=== PATIENT | female | born 1960 ===

== ENCOUNTER 2017-04-04 06:56 | Emergency (ER) | payer MEDICAID ==
[2017-04-04 07:25] VITALS: BMI 22.1
[2017-04-04 07:33] VITALS: RESP 17
--- NOTE | 2017-04-04 08:30 | ED PDOC ---
HPI: General Adult Time Seen by Provider: 04/04/17 07:42 Chief Complaint (Nursing): Flu-like Symptoms Chief Complaint (Provider): Fever, Body Aches, Sore Throat, Cough History Per: Patient History/Exam Limitations: no limitations Onset/Duration Of Symptoms: Days (x7) Have you had recent travel within the past 21 days to any of the following countries: [place], [place], [place] or [place]?: No Current Symptoms Are (Timing): Still Present Additional Complaint(s): Rosa Elena Moyer, a 56 year old female, presents to the ED complaining of fever, body aches, sore throat and non productive cough x1 week. The patient reports that her symptoms are associated with epigastric abdominal pain. Denies vomiting an diarrhea. PMD: [facility] Past Medical History Vital Signs: Last Vital Signs Temp 100 F H 04/04/17 07:30 Pulse 89 04/04/17 07:30 Resp 17 04/04/17 07:30 BP 142/79 04/04/17 07:23 Pulse Ox 97 04/04/17 08:36 - Medical History PMH: Anxiety, Arthritis (clinical lupus. 2007), Kidney Stones Denies: HIV - Surgical History Other surgeries: multiple abdominal surgeries for perforated bowel - Family History Family History: States: Unknown Family Hx - Social History Current smoker - smoking cessation education provided: No Ex-Smoker (has not smoked in the last 12 months): No Alcohol: None Drugs: Denies - Home Medications Home Medications: Ambulatory Orders Medication Instructions Recorded Prednisone 50 mg PO DAILY #4 tablet 07/09/16 Promethazine/Codeine 5 ml PO DAILY PRN #100 ml 07/09/16 [Phenergan/Codeine Oral Syrup] Amoxicillin [Amoxil 500 mg Cap] 500 mg PO TID #30 cap 04/04/17 Famotidine [Pepcid] 20 mg PO Q12 #20 tab 04/04/17 - Allergies Allergies/Adverse Reactions: Allergies Allergy/AdvReac Type Severity Reaction Status Date / Time almond Allergy SHORTNESS Verified 07/09/16 17:22 OF BREATH Review of Systems ROS Statement: Except As Marked, All Systems Reviewed And Found Negative Constitutional: Positive for: Fever, Other (body aches) ENT: Positive for: Throat Pain Respiratory: Positive for: Cough (non-productive) Gastrointestinal: Negative for: Vomiting, Diarrhea Physical Exam - Reviewed Nursing Documentation Reviewed: Yes Vital Signs Reviewed: Yes - Physical Exam Appears: Positive for: Non-toxic, No Acute Distress Head Exam: Positive for: ATRAUMATIC, NORMAL INSPECTION, NORMOCEPHALIC Skin: Positive for: Normal Color, Warm, Dry. Negative for: Rash Eye Exam: Positive for: Normal appearance, EOMI, PERRL ENT: Positive for: Normal ENT Inspection, Other (throat mild erythema no exudates; MISSAEL positive) Neck: Positive for: Normal, Painless ROM, Supple Cardiovascular/Chest: Positive for: Regular Rate, Rhythm, Chest Non Tender. Negative for: Tachycardia Respiratory: Positive for: Normal Breath Sounds. Negative for: Rales, Rhonchi, Wheezing, Respiratory Distress Gastrointestinal/Abdominal: Positive for: Bowel Sounds, Soft, Tenderness (Mid epigastric tenderness surgical scars on lower abdomen noted). Negative for: Normal Exam, Distended Back: Positive for: Normal Inspection. Negative for: L CVA Tenderness, R CVA Tenderness Neurologic/Psych: Positive for: Alert, Oriented - Laboratory Results Result Diagrams: 04/04/17 08:00 04/04/17 08:00 - ECG O2 Sat by Pulse Oximetry: 97 (RA) Pulse Ox Interpretation: Normal Medical Decision Making Medical Decision Makin Initial Impression 56 y/o female presenting with fever, cough, body aches and non productive cough Initial Plan; * CMP * CBC * Influenza A B * Rapid Strep Group * Reevaluation Scribe Attestation Documented by Frances Salguero acting as a scribe for Jonathan Cortez MD. Provider Attestation All medical record entries made by the Scribe were at my direction and personally dictated by me. I have reviewed the chart and agree that the record accurately reflects my personal performance of the history, physical exam, medical decision making, and the department course for this patient. I have also personally directed, reviewed, and agree with the discharge instructions and disposition. Disposition - Clinical Impression Clinical Impression: Pharyngitis, URI (upper respiratory infection) - Patient ED Disposition Is Patient to be Admitted: No Counseled Patient/Family Regarding: Studies Performed, Diagnosis, Need For Followup, Rx Given - Disposition Referrals: [facility] [Outside] Disposition: Routine/Home Disposition Time: 08:53 Condition: FAIR Prescriptions: Amoxicillin [Amoxil 500 mg Cap] 500 mg PO TID #30 cap Famotidine [Pepcid] 20 mg PO Q12 #20 tab Instructions: Pharyngitis (ED), Upper Respiratory Infection (ED) Forms: [employer] ([place])
[2017-04-04 08:31] LABS: BASO % 0.5 % (0.0-2.0); EOS # 0.1 K/uL (0.0-0.7); EOS % 2.1 % (0.0-4.0); HEMATOCRIT 39.3 % (34.0-47.0); LYMPH # 1.1 K/uL (1.0-4.3); LYMPH % 22.2 % (20.0-40.0); MEAN CELL VOLUME 89.5 fl (81.0-99.0); MEAN CORPUSCULAR HEMOGLOBIN 29.5 pg (27.0-31.0); MEAN PLATELET VOLUME 9.2 fl (7.2-11.7); MONO # 0.7 K/uL (0.0-0.8); MONO % 14.7 % (0.0-10.0); NEUT # 2.9 K/uL (1.8-7.0); NEUT % 60.5 % (50.0-75.0); RED CELL DISTRIBUTION WIDTH 12.8 % (11.5-14.5); WHITE BLOOD COUNT 4.8 K/uL (4.8-10.8)
[2017-04-04 08:44] LABS: ALB/GLOB RATIO 1.2 (1.0-2.1); ALKALINE PHOSPHATASE 76 U/L (38-126); ALT/SGPT 53 U/L (9-52); AST/SGOT 39 U/L (14-36); BILIRUBIN,TOTAL 0.5 mg/dl (0.2-1.3); BLOOD UREA NITROGEN 17 mg/dl (7-17); CALCIUM 8.9 mg/dL (8.4-10.2); CARBON DIOXIDE 26 mmol/L (22-30); CHLORIDE 106 mmol/L (98-107); GFR AFRICAN-AMERICAN > 60; GLUCOSE,RANDOM 95 mg/dL (65-105); POTASSIUM 4.9 MMOL/L (3.6-5.0); SODIUM 143 mmol/l (132-148); TOTAL PROTEIN 7.7 G/DL (6.3-8.2)
[2017-04-04 09:05] VITALS: BP 130/78; PULSE 78; TEMP 97; O2SAT 98
== END 2017-04-04 09:05 | disposition home or self-care (01) ==
LOC: H.ER 06:56
DX: J06.9 Acute upper respiratory infection, unspecified (principal); J02.9 Acute pharyngitis, unspecified; F41.9 Anxiety disorder, unspecified; M32.9 Systemic lupus erythematosus, unspecified; Z87.442 Personal history of urinary calculi

== ENCOUNTER 2017-06-19 14:06 | Observation (INO) | payer MEDICAID ==
[2017-06-19 14:07] VITALS: BMI 22.1
[2017-06-19] MEDS ORDERED: Sodium Chloride 0.9% 1,000 ML IV STA (14:59)
--- NOTE | 2017-06-19 15:04 | ED PDOC ---
HPI: General Adult Time Seen by Provider: 06/19/17 14:38 Chief Complaint (Nursing): Back Pain Chief Complaint (Provider): Fever History Per: Patient History/Exam Limitations: no limitations Onset/Duration Of Symptoms: Days (x 3) Current Symptoms Are (Timing): Still Present Additional Complaint(s): Rosa Elena is a 56 y/o female on day 3 of Cipro for a UTI who presents to the ED complaining of continued fever up to 103, right abdominal pain, headache, palpitations, dysuria, nausea and vomiting. Patient denies hematuria. PMD: [facility] Past Medical History Reviewed: Historical Data, Nursing Documentation, Vital Signs Vital Signs: Last Vital Signs Temp 98 F 06/20/17 12:45 Pulse 82 06/20/17 12:45 Resp 18 06/20/17 12:45 BP 120/74 06/20/17 12:45 Pulse Ox 100 06/20/17 12:45 - Medical History PMH: Anxiety, Arthritis (clinical lupus. 2007), Kidney Stones (right sided) Denies: HIV - Family History Family History: States: Unknown Family Hx - Social History Current smoker - smoking cessation education provided: No Alcohol: None - Home Medications Home Medications: Ambulatory Orders Medication Instructions Recorded Acetaminophen [Tylenol 325mg tab] 650 mg PO Q4 PRN tab 06/20/17 Amoxicillin/Clavulanate [Augmentin 1 tab PO Q12 #14 tab 06/20/17 875 MG-125 MG] - Allergies Allergies/Adverse Reactions: Allergies Allergy/AdvReac Type Severity Reaction Status Date / Time almond Allergy SHORTNESS Verified 06/19/17 14:32 OF BREATH Review of Systems ROS Statement: Except As Marked, All Systems Reviewed And Found Negative Constitutional: Positive for: Fever Cardiovascular: Positive for: Palpitations Gastrointestinal: Positive for: Nausea, Vomiting, Abdominal Pain (right sided) Genitourinary Female: Positive for: Dysuria. Negative for: Hematuria Neurological: Positive for: Headache Physical Exam - Reviewed Nursing Documentation Reviewed: Yes Vital Signs Reviewed: Yes - Physical Exam Appears: Positive for: Non-toxic, Uncomfortable Cardiovascular/Chest: Positive for: Tachycardia, Other (regular rhythm) Respiratory: Positive for: Normal Breath Sounds. Negative for: Respiratory Distress Gastrointestinal/Abdominal: Positive for: Soft, Tenderness (right lateral). Negative for: Guarding, Rebound Extremity: Positive for: Normal ROM Neurologic/Psych: Positive for: Alert, Oriented - Laboratory Results Result Diagrams: 06/20/17 05:00 06/20/17 05:53 - ECG O2 Sat by Pulse Oximetry: 98 (RA) Pulse Ox Interpretation: Normal Medical Decision Making Medical Decision Making: Time: 14:59 Initial Impression: UTI, Pyelonephritis, Nephrolithiasis, Sepsis Initial Plan: --CT Abdomen & Pelvis w/o Contrast --VBG --CMP --Urine Dip --CBC --PTT --Prothrombin Time --Morphine --Zofran --Blood Culture --Urine Culture --Flu Swab --Urinalysis Time: 16:10 CT ABDOMEN & PELVIS FINDINGS: LOWER THORAX: Unremarkable. LIVER: Cm superior right hepatic hypodensities is emboli in benign lesions probably incidental tiny liver cysts are noted. No worrisome interval liver masses suggested. Bordering the branching portal vein the vernon hepatis there are hyperdensities resembling calcium and or postsurgical changes. The gallbladder below this is unremarkable appearing these hyperdensities are noted on the prior 2010 study. No additional surgical history provided at this level. No dilated ducts. GALLBLADDER AND BILE DUCTS: Unremarkable. PANCREAS: Unremarkable. No gross lesion or ductal dilatation. SPLEEN: Unremarkable. ADRENALS: Unremarkable. No mass. KIDNEYS AND URETERS: Multifocal right renal cortical scarring/ segmental cortical volume loss with right hydronephrosis and right renal calculi R similar-appearing the largest right renal calculus is approximately 8 to 9 mm within the posterior right lower renal pole collecting system. No hydronephrosis. No solid mass. No interval masses appreciated on this noncontrast study. Concomitant parapelvic cysts are not excluded. Appearance of the kidney does not exclude any concomitant pyelonephritis. Overall appearance is similar to 2010 study. The proximal right extra renal pelvis is also slightly prominent as it was before. No obstructing calculus here is noted. There is slight segmental dilatation of the mid and upper right ureter -not consistently or suggestive of a pulmonary station. Note distal 1/3 obstructing calculus noted. . Tiny nonobstructing left renal calculi estimated to be less than 3 mm in size are noted the presence on the prior study it is difficult to confirm given the prior postcontrast enhanced study VASCULATURE: Unremarkable. No aortic aneurysm. BOWEL: Stool retention. No obstruction. No gross mural thickening. APPENDIX: Not visualized. No gross pericecal inflammatory changes PERITONEUM: Unremarkable. No free fluid. No free air. LYMPH NODES: Unremarkable. No enlarged lymph nodes. BLADDER: No bladder calculi. REPRODUCTIVE: History of hysterectomy. There multiple coarse benign-appearing calcifications present these project over what would be expected to be the postmenopausal appearing uterus. Clinical confirmation of prior hysterectomy status advise. Phleboliths also noted. An a few scattered mesenteric lymph nodes present. Is also hyperdensity surrounding some of the anterior left rectosigmoid colonic loops with stool contents here clinical correlation regarding any prior: Surgical intervention is advised. . BONES: No acute fracture. OTHER FINDINGS: None. IMPRESSION: Right hydronephrosis with multifocal right cortical scarring. Bilateral nephro lithiasis - the largest calculus is within the posterior right lower renal pole collecting system measuring 8 9 mm ; this is similar to the 2010 study. The right hydronephrosis is also similar in extent as is the right multifocal renal cortical scarring. A concomitant element pyelonephritis on the right is not excluded. . Scribe Attestation: Documented by Tone Muse, acting as a scribe for Dr. Claudia Martin MD. Provider Scribe Attestation: All medical record entries made by the Scribe were at my direction and personally dictated by me. I have reviewed the chart and agree that the record accurately reflects my personal performance of the history, physical exam, medical decision making, and the department course for this patient. I have also personally directed, reviewed, and agree with the discharge instructions and disposition. Disposition - Clinical Impression Clinical Impression: UTI (urinary tract infection), Sepsis, Failure of outpatient treatment - Disposition Disposition Time: 16:27 Condition: STABLE - Pt Status Changed To: Hospital Disposition Of: Inpatient - Admit Certification Admit to Inpatient:: After my assessment, the patient will require hospitalization for at least two midnights. This is because of the severity of symptoms shown, intensity of services needed, and/or the medical risk in this patient being treated as an outpatient. - POA Present On Arrival: None
[2017-06-19 15:35] LABS: SQUAMOUS EPITHIAL < 1 /hpf (0-5); URINE BACTERIA RARE (<OCC); URINE BILIRUBIN NEGATIVE (NEGATIVE); URINE BLOOD SMALL (NEGATIVE); URINE CLARITY SLIGHTY-CLOUDY (Clear); URINE COLOR YELLOW (YELLOW); URINE GLUCOSE (UA) NEG (Normal); URINE LEUKOCYTE ESTERASE LARGE Leu/uL (Negative); URINE NITRATE NEGATIVE (NEGATIVE); URINE PROTEIN 30 mg/dL (NEGATIVE); URINE UROBILINOGEN 0.2-1.0 mg/dL (0.2-1.0)
[2017-06-19 15:38] LABS: BASO % 0.2 % (0.0-2.0); HEMOGLOBIN 12.4 g/dL (12.0-16.0); LYMPH # 0.5 K/uL (1.0-4.3); LYMPH % 4.4 % (20.0-40.0); MEAN CELL VOLUME 89.1 fl (81.0-99.0); MEAN CORPUSCULAR HEMOGLOBIN 29.5 pg (27.0-31.0); MEAN CORPUSCULAR HGB CONC 33.1 g/dL (33.0-37.0); MEAN PLATELET VOLUME 8.4 fl (7.2-11.7); MONO # 0.8 K/uL (0.0-0.8); MONO % 7.4 % (0.0-10.0); NEUT # 9.7 K/uL (1.8-7.0); NRBC % 0.1 % (0.0-0.0); PLATELET COUNT 212 K/uL (130-400); RED CELL DISTRIBUTION WIDTH 12.8 % (11.5-14.5); WHITE BLOOD COUNT 11.1 K/uL (4.8-10.8)
[2017-06-19 15:38] LABS: ALB/GLOB RATIO 1.1 (1.0-2.1); ALBUMIN 3.9 g/dL (3.5-5.0); ALT/SGPT 38 U/L (9-52); AST/SGOT 36 U/L (14-36); BLOOD UREA NITROGEN 21 mg/dl (7-17); CALCIUM 8.6 mg/dL (8.4-10.2); GFR AFRICAN-AMERICAN > 60; GFR NON-AFRICAN AMERICAN > 60
[2017-06-19 15:43] LABS: INR 1.2 (0.9-1.2); PARTIAL THROMBOPLASTIN TIME 29.7 Seconds (25.6-37.1); PROTHROMBIN TIME 13.3 Seconds (9.8-13.1)
[2017-06-19 15:52] LABS: VENOUS BLOOD GAS PCO2 38 mmHg (40-60); VENOUS BLOOD GAS PO2 58 mm/Hg (30-55); VENOUS BLOOD PH 7.43 (7.32-7.43)
--- NOTE | 2017-06-19 16:12 | CT ---
PROCEDURE: CT Abdomen and Pelvis without intravenous contrast HISTORY: R flank pain, fever COMPARISON: 02/27/2010 TECHNIQUE: Without contrast.. Contrast Dose: None Radiation dose: Total exam DLP = 450 mGy-cm. This CT exam was performed using one or more of the following dose reduction techniques: Automated exposure control, adjustment of the mA and/or kV according to patient size, and/or use of iterative reconstruction technique. FINDINGS: LOWER THORAX: Unremarkable. LIVER: Cm superior right hepatic hypodensities is emboli in benign lesions probably incidental tiny liver cysts are noted. No worrisome interval liver masses suggested. Bordering the branching portal vein the vernon hepatis there are hyperdensities resembling calcium and or postsurgical changes. The gallbladder below this is unremarkable appearing these hyperdensities are noted on the prior 2010 study. No additional surgical history provided at this level. No dilated ducts. GALLBLADDER AND BILE DUCTS: Unremarkable. PANCREAS: Unremarkable. No gross lesion or ductal dilatation. SPLEEN: Unremarkable. ADRENALS: Unremarkable. No mass. KIDNEYS AND URETERS: Multifocal right renal cortical scarring/ segmental cortical volume loss with right hydronephrosis and right renal calculi R similar-appearing the largest right renal calculus is approximately 8 to 9 mm within the posterior right lower renal pole collecting system. No hydronephrosis. No solid mass. No interval masses appreciated on this noncontrast study. Concomitant parapelvic cysts are not excluded. Appearance of the kidney does not exclude any concomitant pyelonephritis. Overall appearance is similar to 2010 study. The proximal right extra renal pelvis is also slightly prominent as it was before. No obstructing calculus here is noted. There is slight segmental dilatation of the mid and upper right ureter -not consistently or suggestive of a pulmonary station. Note distal 1/3 obstructing calculus noted. . Tiny nonobstructing left renal calculi estimated to be less than 3 mm in size are noted the presence on the prior study it is difficult to confirm given the prior postcontrast enhanced study VASCULATURE: Unremarkable. No aortic aneurysm. BOWEL: Stool retention. No obstruction. No gross mural thickening. APPENDIX: Not visualized. No gross pericecal inflammatory changes PERITONEUM: Unremarkable. No free fluid. No free air. LYMPH NODES: Unremarkable. No enlarged lymph nodes. BLADDER: No bladder calculi. REPRODUCTIVE: History of hysterectomy. There multiple coarse benign-appearing calcifications present these project over what would be expected to be the postmenopausal appearing uterus. Clinical confirmation of prior hysterectomy status advise. Phleboliths also noted. An a few scattered mesenteric lymph nodes present. Is also hyperdensity surrounding some of the anterior left rectosigmoid colonic loops with stool contents here clinical correlation regarding any prior: Surgical intervention is advised. . BONES: No acute fracture. OTHER FINDINGS: None. IMPRESSION: Right hydronephrosis with multifocal right cortical scarring. Bilateral nephro lithiasis - the largest calculus is within the posterior right lower renal pole collecting system measuring 8 9 mm ; this is similar to the 2010 study. The right hydronephrosis is also similar in extent as is the right multifocal renal cortical scarring. A concomitant element pyelonephritis on the right is not excluded. .
[2017-06-19] MEDS ORDERED: cefTRIAXone (Rocephin) 1 gm Inj ONE (16:37)
[2017-06-19 17:01] LABS: BANDS 3 % (0-2); LYMPHOCYTE 5 % (20-50); MONOCYTE 8 % (0-10); NEUTROPHIL 84 % (42-75); PLATELET ESTIMATE NORMAL (NORMAL); TOTAL CELLS COUNTED 100
[2017-06-19 17:02] LABS: ANISOCYTOSIS SLIGHT; MICROCYTOSIS SLIGHT
[2017-06-19] MEDS: Sodium Chloride 0.9% 1,000 ML IV SCH (20:54)
[2017-06-20 00:52] VITALS: RESP 18
[2017-06-20] MEDS: Sodium Chloride 0.9% 1,000 ML IV SCH (03:00)
[2017-06-20 06:02] LABS: BASO % 0.5 % (0.0-2.0); EOS # 0.1 K/uL (0.0-0.7); EOS % 0.8 % (0.0-4.0); HEMOGLOBIN 11.1 g/dL (12.0-16.0); LYMPH % 15.6 % (20.0-40.0); MEAN CELL VOLUME 89.2 fl (81.0-99.0); MEAN CORPUSCULAR HEMOGLOBIN 29.7 pg (27.0-31.0); MEAN CORPUSCULAR HGB CONC 33.3 g/dL (33.0-37.0); MEAN PLATELET VOLUME 8.5 fl (7.2-11.7); MONO # 0.8 K/uL (0.0-0.8); MONO % 12.6 % (0.0-10.0); NEUT # 4.7 K/uL (1.8-7.0); NEUT % 70.5 % (50.0-75.0); NRBC % 0.1 % (0.0-0.0); RBC 3.73 Mil/uL (3.80-5.20); RED CELL DISTRIBUTION WIDTH 13.1 % (11.5-14.5); WHITE BLOOD COUNT 6.7 K/uL (4.8-10.8)
[2017-06-20 07:42] LABS: ALB/GLOB RATIO 0.9 (1.0-2.1); ALT/SGPT 27 U/L (9-52); AST/SGOT 30 U/L (14-36); BLOOD UREA NITROGEN 18 mg/dl (7-17); CALCIUM 8.1 mg/dL (8.4-10.2); GFR AFRICAN-AMERICAN > 60; GFR NON-AFRICAN AMERICAN > 60
--- NOTE | 2017-06-20 08:25 | CP.PCM.HP ---
History of Present Illness - History of Present Illness History of Present Illness: pt admitted for pyelonephritis, sepsis and outpt failure of uti. at present. no f/c, n/v/d. only c/o headache. no flank pain at present. ct noted w/ nonobstructing stone-pt has h/o same. bw noted-wbc trendning down Present on Admission - Present on Admission Any Indicators Present on Admission: No Review of Systems - Constitutional Constitutional: Fever - Genitourinary Genitourinary: As Per HPI, Dysuria, Flank Pain - Neurological Neurological: As Per HPI, Headaches Past Patient History - Past Medical History & Family History Past Medical History?: Yes - Past Social History Smoking Status: Never Smoked - CARDIAC Hx Cardiac Disorders: No - PULMONARY Hx Respiratory Disorders: No - NEUROLOGICAL Hx Neurological Disorder: No - HEENT Hx HEENT Problems: No - RENAL Hx Chronic Kidney Disease: Yes Hx Kidney Stones: Yes (right sided) - ENDOCRINE/METABOLIC Hx Endocrine Disorders: No - HEMATOLOGICAL/ONCOLOGICAL Hx Blood Disorders: No Hx AIDS: No Hx Human Immunodeficiency Virus (HIV): No - INTEGUMENTARY Hx Dermatological Problems: No - MUSCULOSKELETAL/RHEUMATOLOGICAL Hx Musculoskeletal Disorders: Yes Hx Arthritis: Yes Hx Falls: No - GASTROINTESTINAL Hx Gastrointestinal Disorders: Yes Hx Bowel Surgery: No Hx Colostomy: No Hx Constipation: Yes Other/Comment: stomach ruptures - GENITOURINARY/GYNECOLOGICAL Hx Genitourinary Disorders: Yes Other/Comment: kidney stones - PSYCHIATRIC Hx Psychophysiologic Disorder: Yes Hx Anxiety: Yes Hx Substance Use: No - SURGICAL HISTORY Hx Surgeries: Yes Hx Section: Yes Hx Hysterectomy: Yes - ANESTHESIA Hx Anesthesia: Yes Hx Anesthesia Reactions: No Hx Malignant Hyperthermia: No Meds Allergies/Adverse Reactions: Allergies Allergy/AdvReac Type Severity Reaction Status Date / Time almond Allergy SHORTNESS Verified 06/19/17 14:32 OF BREATH Physical Exam - Constitutional Appears: Well, Non-toxic, No Acute Distress - Head Exam Head Exam: ATRAUMATIC, NORMAL INSPECTION, NORMOCEPHALIC - Eye Exam Eye Exam: EOMI, Normal appearance, PERRL Pupil Exam: NORMAL ACCOMODATION, PERRL - ENT Exam ENT Exam: Mucous Membranes Moist, Normal Exam - Neck Exam Neck exam: Positive for: Normal Inspection - Respiratory Exam Respiratory Exam: Clear to Auscultation Bilateral, NORMAL BREATHING PATTERN - Cardiovascular Exam Cardiovascular Exam: REGULAR RHYTHM, RRR, +S1, +S2 - GI/Abdominal Exam GI & Abdominal Exam: Normal Bowel Sounds, Soft. absent: Tenderness - Extremities Exam Extremities exam: Positive for: full ROM, normal capillary refill, normal inspection, pedal pulses present - Back Exam Back exam: NORMAL INSPECTION - Neurological Exam Neurological exam: Alert, CN II-XII Intact, Normal Gait, Oriented x3, Reflexes Normal - Psychiatric Exam Psychiatric exam: Normal Affect, Normal Mood - Skin Skin Exam: Dry, Intact, Normal Color, Warm Results - Vital Signs Recent Vital Signs: Last Vital Signs Temp 98.1 F 06/20/17 07:48 Pulse 84 06/20/17 07:48 Resp 18 06/20/17 07:48 BP 120/79 06/20/17 07:48 Pulse Ox 99 06/20/17 07:48 - Labs Result Diagrams: 06/20/17 05:00 06/20/17 05:53 Labs: Laboratory Results - last 24 hr 06/19/17 06/19/17 06/19/17 15:15 15:15 15:15 WBC RBC Hgb Hct MCV MCH MCHC RDW Plt Count MPV Neut % (Auto) Lymph % (Auto) Cass % (Auto) Eos % (Auto) Baso % (Auto) Neut # (Auto) Lymph # (Auto) Cass # (Auto) Eos # (Auto) Baso # (Auto) Neutrophils % (Manual) Band Neutrophils % Lymphocytes % (Manual) Monocytes % (Manual) Platelet Estimate Anisocytosis (manual) Microcytosis (manual) PT 13.3 H INR 1.2 APTT 29.7 pO2 VBG pH VBG pCO2 VBG HCO3 VBG Total CO2 VBG O2 Sat (Calc) VBG Base Excess VBG Potassium Glucose Lactate FiO2 Sodium 137 Potassium 3.9 Chloride 101 Carbon Dioxide 23 Anion Gap 17 BUN 21 H Creatinine 0.8 Est GFR ( Amer) > 60 Est GFR (Non-Af Amer) > 60 Random Glucose 101 Calcium 8.6 Total Bilirubin 0.6 AST 36 ALT 38 Alkaline Phosphatase 79 Total Protein 7.5 Albumin 3.9 Globulin 3.6 Albumin/Globulin Ratio 1.1 Venous Blood Potassium Urine Color Urine Clarity Urine pH Ur Specific [place] Urine Protein Urine Glucose (UA) Urine Ketones Urine Blood Urine Nitrate Urine Bilirubin Urine Urobilinogen Ur Leukocyte Esterase Urine RBC (Auto) Urine Microscopic WBC Ur Squamous Epith Cells Urine Bacteria Influenza Typ A,B (EIA) Negative for flu a/b 06/19/17 06/19/17 06/19/17 15:15 15:45 16:15 WBC 11.1 H D RBC 4.20 Hgb 12.4 Hct 37.4 MCV 89.1 MCH 29.5 MCHC 33.1 RDW 12.8 Plt Count 212 MPV 8.4 Neut % (Auto) 88.0 H Lymph % (Auto) 4.4 L Cass % (Auto) 7.4 Eos % (Auto) 0.0 Baso % (Auto) 0.2 Neut # (Auto) 9.7 H Lymph # (Auto) 0.5 L Cass # (Auto) 0.8 Eos # (Auto) 0.0 Baso # (Auto) 0.0 Neutrophils % (Manual) 84 H Band Neutrophils % 3 H Lymphocytes % (Manual) 5 L Monocytes % (Manual) 8 Platelet Estimate Normal Anisocytosis (manual) Slight Microcytosis (manual) Slight PT INR APTT pO2 58 H VBG pH 7.43 VBG pCO2 38 L VBG HCO3 25.5 VBG Total CO2 26.4 VBG O2 Sat (Calc) 94.8 H VBG Base Excess 1.0 VBG Potassium 4.0 Glucose 105 Lactate 0.6 L FiO2 21.0 Sodium 133.0 Potassium Chloride 102.0 Carbon Dioxide Anion Gap BUN Creatinine Est GFR ( Amer) Est GFR (Non-Af Amer) Random Glucose Calcium Total Bilirubin AST ALT Alkaline Phosphatase Total Protein Albumin Globulin Albumin/Globulin Ratio Venous Blood Potassium 4.0 Urine Color Yellow Urine Clarity Slighty-cloudy Urine pH 7.0 Ur Specific [place] 1.013 Urine Protein 30 Urine Glucose (UA) Neg Urine Ketones 20 Urine Blood Small Urine Nitrate Negative Urine Bilirubin Negative Urine Urobilinogen 0.2-1.0 Ur Leukocyte Esterase Large Urine RBC (Auto) 7 H Urine Microscopic WBC 19 H Ur Squamous Epith Cells < 1 Urine Bacteria Rare Influenza Typ A,B (EIA) 06/20/17 06/20/17 05:00 05:53 WBC 6.7 RBC 3.73 L Hgb 11.1 L Hct 33.3 L MCV 89.2 MCH 29.7 MCHC 33.3 RDW 13.1 Plt Count 172 MPV 8.5 Neut % (Auto) 70.5 Lymph % (Auto) 15.6 L Cass % (Auto) 12.6 H Eos % (Auto) 0.8 Baso % (Auto) 0.5 Neut # (Auto) 4.7 Lymph # (Auto) 1.0 Cass # (Auto) 0.8 Eos # (Auto) 0.1 Baso # (Auto) 0.0 Neutrophils % (Manual) Band Neutrophils % Lymphocytes % (Manual) Monocytes % (Manual) Platelet Estimate Anisocytosis (manual) Microcytosis (manual) PT INR APTT pO2 VBG pH VBG pCO2 VBG HCO3 VBG Total CO2 VBG O2 Sat (Calc) VBG Base Excess VBG Potassium Glucose Lactate FiO2 Sodium 142 Potassium 3.9 Chloride 110 H Carbon Dioxide 26 Anion Gap 10 BUN 18 H Creatinine 0.7 Est GFR ( Amer) > 60 Est GFR (Non-Af Amer) > 60 Random Glucose 86 Calcium 8.1 L Total Bilirubin 0.3 AST 30 ALT 27 Alkaline Phosphatase 57 Total Protein 6.1 L Albumin 3.0 L D Globulin 3.2 Albumin/Globulin Ratio 0.9 L Venous Blood Potassium Urine Color Urine Clarity Urine pH Ur Specific [place] Urine Protein Urine Glucose (UA) Urine Ketones Urine Blood Urine Nitrate Urine Bilirubin Urine Urobilinogen Ur Leukocyte Esterase Urine RBC (Auto) Urine Microscopic WBC Ur Squamous Epith Cells Urine Bacteria Influenza Typ A,B (EIA) Assessment & Plan (1) Pyelonephritis Assessment and Plan: f/u c/s rocephin ivf pain and fever control no obvious s/s sepsis. will f/u c/s pt requesting to be dc home. if dc today will do uro outpt, if stays will do inpt consult Status: Acute (2) DVT prophylaxis Assessment and Plan: scd adn ae hose ambulation Status: Acute Decision To Admit - Pt Status Changed To: Hospital Disposition Of: Inpatient - Admit Certification Admit to Inpatient:: After my assessment, the patient will require hospitalization for at least two midnights. This is because of the severity of symptoms shown, intensity of services needed, and/or the medical risk in this patient being treated as an outpatient. - . Bed Request Type: Telemetry Admitting Physician: Crispin De Leon
--- NOTE | 2017-06-20 11:25 | CARD ---
APPROVED REPORT EKG Measurement Heart [id number] <Conclusion> Normal sinus rhythm Normal ECG
[2017-06-20 12:45] VITALS: BP 120/74; PULSE 82; TEMP 98
--- NOTE | 2017-06-20 14:22 | CP.PCM.DIS ---
Provider - Provider Date of Admission: 06/19/17 16:27 Attending physician: Crispin De Leon MD Time Spent in preparation of Discharge (in minutes): 15 Diagnosis - Discharge Diagnosis (1) Pyelonephritis Status: Acute (2) DVT prophylaxis Status: Acute Hospital Course - Lab Results Lab Results: Most Recent Lab Values WBC 6.7 K/uL (4.8-10.8) 06/20/17 05:00 RBC 3.73 Mil/uL (3.80-5.20) L 06/20/17 05:00 Hgb 11.1 g/dL (12.0-16.0) L 06/20/17 05:00 Hct 33.3 % (34.0-47.0) L 06/20/17 05:00 MCV 89.2 fl (81.0-99.0) 06/20/17 05:00 MCH 29.7 pg (27.0-31.0) 06/20/17 05:00 MCHC 33.3 g/dL (33.0-37.0) 06/20/17 05:00 RDW 13.1 % (11.5-14.5) 06/20/17 05:00 Plt Count 172 K/uL (130-400) 06/20/17 05:00 MPV 8.5 fl (7.2-11.7) 06/20/17 05:00 Neut % (Auto) 70.5 % (50.0-75.0) 06/20/17 05:00 Lymph % (Auto) 15.6 % (20.0-40.0) L 06/20/17 05:00 [place] % (Auto) 12.6 % (0.0-10.0) H 06/20/17 05:00 Eos % (Auto) 0.8 % (0.0-4.0) 06/20/17 05:00 Baso % (Auto) 0.5 % (0.0-2.0) 06/20/17 05:00 Neut # (Auto) 4.7 K/uL (1.8-7.0) 06/20/17 05:00 Lymph # (Auto) 1.0 K/uL (1.0-4.3) 06/20/17 05:00 [place] # (Auto) 0.8 K/uL (0.0-0.8) 06/20/17 05:00 Eos # (Auto) 0.1 K/uL (0.0-0.7) 06/20/17 05:00 Baso # (Auto) 0.0 K/uL (0.0-0.2) 06/20/17 05:00 Neutrophils % (Manual) 84 % (42-75) H 06/19/17 16:15 Band Neutrophils % 3 % (0-2) H 06/19/17 16:15 Lymphocytes % (Manual) 5 % (20-50) L 06/19/17 16:15 Monocytes % (Manual) 8 % (0-10) 06/19/17 16:15 Platelet Estimate Normal (NORMAL) 06/19/17 16:15 Anisocytosis (manual) Slight 06/19/17 16:15 Microcytosis (manual) Slight 06/19/17 16:15 PT 13.3 Seconds (9.8-13.1) H 06/19/17 15:15 INR 1.2 (0.9-1.2) 06/19/17 15:15 APTT 29.7 Seconds (25.6-37.1) 06/19/17 15:15 pO2 58 mm/Hg (30-55) H 06/19/17 15:45 VBG pH 7.43 (7.32-7.43) 06/19/17 15:45 VBG pCO2 38 mmHg (40-60) L 06/19/17 15:45 VBG HCO3 25.5 mmol/L 06/19/17 15:45 VBG Total CO2 26.4 mmol/L (22-28) 06/19/17 15:45 VBG O2 Sat (Calc) 94.8 % (40-65) H 06/19/17 15:45 VBG Base Excess 1.0 mmol/L (0.0-2.0) 06/19/17 15:45 VBG Potassium 4.0 mmol/L (3.6-5.2) 06/19/17 15:45 Sodium 133.0 mmol/L (132-148) 06/19/17 15:45 Chloride 102.0 mmol/L (98-107) 06/19/17 15:45 Glucose 105 mg/dL (65-105) 06/19/17 15:45 Lactate 0.6 mmol/L (0.7-2.1) L 06/19/17 15:45 FiO2 21.0 % 06/19/17 15:45 Sodium 142 mmol/l (132-148) 06/20/17 05:53 Potassium 3.9 MMOL/L (3.6-5.0) 06/20/17 05:53 Chloride 110 mmol/L (98-107) H 06/20/17 05:53 Carbon Dioxide 26 mmol/L (22-30) 06/20/17 05:53 Anion Gap 10 (10-20) 06/20/17 05:53 BUN 18 mg/dl (7-17) H 06/20/17 05:53 Creatinine 0.7 mg/dl (0.7-1.2) 06/20/17 05:53 Est GFR ( Amer) > 60 06/20/17 05:53 Est GFR (Non-Af Amer) > 60 06/20/17 05:53 Random Glucose 86 mg/dL (65-105) 06/20/17 05:53 Calcium 8.1 mg/dL (8.4-10.2) L 06/20/17 05:53 Total Bilirubin 0.3 mg/dl (0.2-1.3) 06/20/17 05:53 AST 30 U/L (14-36) 06/20/17 05:53 ALT 27 U/L (9-52) 06/20/17 05:53 Alkaline Phosphatase 57 U/L (38-126) 06/20/17 05:53 Total Protein 6.1 G/DL (6.3-8.2) L 06/20/17 05:53 Albumin 3.0 g/dL (3.5-5.0) L D 06/20/17 05:53 Globulin 3.2 gm/dL (2.2-3.9) 06/20/17 05:53 Albumin/Globulin Ratio 0.9 (1.0-2.1) L 06/20/17 05:53 Venous Blood Potassium 4.0 mmol/L (3.6-5.2) 06/19/17 15:45 Urine Color Yellow (YELLOW) 06/19/17 15:15 Urine Clarity Slighty-cloudy (Clear) 06/19/17 15:15 Urine pH 7.0 (5.0-8.0) 06/19/17 15:15 Ur Specific [place] 1.013 (1.003-1.030) 06/19/17 15:15 Urine Protein 30 mg/dL (NEGATIVE) 06/19/17 15:15 Urine Glucose (UA) Neg mg/dL (Normal) 06/19/17 15:15 Urine Ketones 20 mg/dL (NEGATIVE) 06/19/17 15:15 Urine Blood Small (NEGATIVE) 06/19/17 15:15 Urine Nitrate Negative (NEGATIVE) 06/19/17 15:15 Urine Bilirubin Negative (NEGATIVE) 06/19/17 15:15 Urine Urobilinogen 0.2-1.0 mg/dL (0.2-1.0) 06/19/17 15:15 Ur Leukocyte Esterase Large [place]/uL (Negative) 06/19/17 15:15 Urine RBC (Auto) 7 /hpf (0-3) H 06/19/17 15:15 Urine Microscopic WBC 19 /hpf (0-5) H 06/19/17 15:15 Ur Squamous Epith Cells < 1 /hpf (0-5) 06/19/17 15:15 Urine Bacteria Rare (<OCC) 06/19/17 15:15 Influenza Typ A,B (EIA) Negative for flu a/b (NEGATIVE) 06/19/17 15:15 - Hospital Course Hospital Course: rocephin ivf pain and fever control bw Discharge Exam - Head Exam Head Exam: ATRAUMATIC, NORMAL INSPECTION, NORMOCEPHALIC Discharge Plan - Discharge Medications Prescriptions: Amoxicillin/Clavulanate [Augmentin 875 MG-125 MG] 1 tab PO Q12 #14 tab - Follow Up Plan Condition: FAIR Disposition: HOME/ ROUTINE Instructions: Acute Pyelonephritis (DC) Additional Instructions: follow up with pmd in 7-10 days final dx-pyelonephritis f/u rmg 1 days, rted prn, meds per med rec stay hydration, will f/u c/s outpt Referrals: Crispin De Leon MD [Family Provider] - Nils Sylvester Jr., MD [Staff Provider] -
[2017-06-21 11:24] VITALS: O2SAT 98
== END 2017-06-20 14:00 | disposition home or self-care (01) ==
LOC: H.ER 14:06 → INTOOBSV 16:27 → H.ERHOLD 16:27 → H.TEL 18:20
PROVIDERS: ADMIT Family Medicine; ATTEND Family Medicine
DX: N10 Acute pyelonephritis (principal); Z87.442 Personal history of urinary calculi
CPT/HCPCS: 36415; 74176; 80053; 81003; 82803; 85025; 85610; 85730; 87040; 87086; 87804; 93005; 99285; G0378; J0696; J2270; J2405; J7040

== ENCOUNTER 2017-10-22 07:57 | Day surgery (SDC) | payer MEDICAID ==
[2017-10-22 08:30] VITALS: BMI 21.9
[2017-10-22] MEDS ORDERED: Lactated Ringer's 500 ML IV ONE ×2 (08:32→11:18)
[2017-10-22 08:41] VITALS: O2SAT 100
[2017-10-22] MEDS ORDERED: Propofol 10 mg/ml Inj (20 ML) ONE ×2 (10:52→11:17)
[2017-10-22 11:53] VITALS: TEMP 97.2
[2017-10-22 11:58] VITALS: BP 120/79
[2017-10-22 12:00] VITALS: PULSE 71; RESP 12
== END 2017-10-22 13:00 | disposition home or self-care (01) ==
LOC: H.ENDO 07:57
PROVIDERS: ATTEND Internal Medicine Gastroenterology
DX: Z12.11 Encounter for screening for malignant neoplasm of colon (principal); K64.8 Other hemorrhoids; K44.9 Diaphragmatic hernia without obstruction or gangrene; K29.70 Gastritis, unspecified, without bleeding; R10.13 Epigastric pain
CPT/HCPCS: 43239; 45378; 88305; J2001; J2704; J7120

== ENCOUNTER 2018-09-18 21:36 | Emergency (ER) | payer MEDICAID ==
[2018-09-18 21:36] VITALS: BMI 21.9
[2018-09-18 22:11] VITALS: RESP 18; TEMP 97.9; O2SAT 99
[2018-09-18 23:41] LABS: BASO # 0.1 K/uL (0.0-0.2); BASO % 1.3 % (0.0-2.0); EOS # 0.2 K/uL (0.0-0.7); EOS % 3.5 % (0.0-4.0); HEMOGLOBIN 12.9 g/dL (12.0-16.0); LYMPH # 2.1 K/uL (1.0-4.3); LYMPH % 43.5 % (20.0-40.0); MEAN CELL VOLUME 89.8 fl (81.0-99.0); MEAN CORPUSCULAR HGB CONC 33.4 g/dL (33.0-37.0); MEAN PLATELET VOLUME 9.2 fl (7.2-11.7); MONO # 0.3 K/uL (0.0-0.8); MONO % 7.1 % (0.0-10.0); NEUT # 2.1 K/uL (1.8-7.0); NEUT % 44.6 % (50.0-75.0); NRBC % 0.1 % (0.0-0.0); RBC 4.31 Mil/uL (3.80-5.20); RED CELL DISTRIBUTION WIDTH 12.9 % (11.5-14.5); WHITE BLOOD COUNT 4.8 K/uL (4.8-10.8)
[2018-09-18 23:44] LABS: PROTHROMBIN TIME 11.4 Seconds (9.8-13.1)
[2018-09-18 23:46] LABS: PARTIAL THROMBOPLASTIN TIME 34.4 Seconds (25.6-37.1)
[2018-09-18 23:47] LABS: ALB/GLOB RATIO 1.4 (1.0-2.1); ALBUMIN 4.4 g/dL (3.5-5.0); ALT/SGPT 29 U/L (9-52); AST/SGOT 29 U/L (14-36); BLOOD UREA NITROGEN 25 mg/dl (7-17); CALCIUM 9.4 mg/dL (8.4-10.2); GFR NON-AFRICAN AMERICAN > 60
--- NOTE | 2018-09-19 00:38 | ED PDOC ---
HPI: Hypertension/Hypotension Time Seen by Provider: 09/18/18 22:51 Chief Complaint (Nursing): Palpitations Chief Complaint (Provider): Palpitations History Per: Patient History/Exam Limitations: no limitations Onset/Duration Of Symptoms: Other (Today) Associated Symptoms: Dizziness. denies: Chest Pain Additional Complaint(s): 58 years old female with a history of "long standing palpitations and blood clots from thickened blood" presents to ER for evaluation of "fibrillations" of her heart onset today. Patient reports symptoms are better when sitting up and worse with laying down. She states she gets dizzy because of it and reports she is usually able to make palpitations go away by changing position but today she has not been able to. Patient reports she feels like she cannot take a deep breath in and feels she has to make herself yawn to get air in her lungs. She denies chest pain, cough, fevers and leg swelling. PMD: None provided Past Medical History Reviewed: Historical Data, Nursing Documentation, Vital Signs Vital Signs: Last Vital Signs Temp 97.9 F 09/18/18 22:07 Pulse 70 09/18/18 22:07 Resp 18 09/18/18 22:07 BP 136/80 09/18/18 22:07 Pulse Ox 99 09/18/18 22:07 Primary Care Provider: Non [facility] Provider, - Medical History PMH: Anxiety, Arthritis (clinical lupus. 2007), Kidney Stones (right sided), Chronic Kidney Disease Denies: HIV - Surgical History Surgical History: No Surg Hx - Family History Family History: States: Unknown Family Hx - Allergies Allergies/Adverse Reactions: Allergies Allergy/AdvReac Type Severity Reaction Status Date / Time almond Allergy SHORTNESS Verified 10/22/17 08:30 OF BREATH nut - unspecified Allergy SHORTNESS Verified 09/18/18 22:11 OF BREATH Review of Systems ROS Statement: Except As Marked, All Systems Reviewed And Found Negative Constitutional: Negative for: Fever Cardiovascular: Positive for: Palpitations. Negative for: Chest Pain Respiratory: Positive for: Shortness of Breath. Negative for: Cough Musculoskeletal: Negative for: Other (Leg swelling) Physical Exam - Reviewed Nursing Documentation Reviewed: Yes Vital Signs Reviewed: Yes - Physical Exam Appears: Positive for: Well, No Acute Distress Head Exam: Positive for: ATRAUMATIC, NORMOCEPHALIC Skin: Positive for: Normal Color, Warm, Dry Eye Exam: Positive for: Normal appearance, EOMI, PERRL ENT: Positive for: Normal ENT Inspection Neck: Positive for: Normal, Painless ROM, Supple Cardiovascular/Chest: Positive for: Regular Rate, Rhythm. Negative for: Murmur Respiratory: Positive for: Normal Breath Sounds. Negative for: Wheezing Gastrointestinal/Abdominal: Positive for: Normal Exam, Soft. Negative for: Tenderness Back: Positive for: Normal Inspection. Negative for: L CVA Tenderness, R CVA Tenderness Extremity: Positive for: Normal ROM. Negative for: Pedal Edema, Swelling Neurological/Psych: Positive for: Awake, Alert, Oriented (x3) - Laboratory Results Result Diagrams: 09/18/18 23:25 09/18/18 23:25 Lab Results: PT 11.4 Seconds (9.8-13.1) 09/18/18 23: INR 1.0 09/18/18 23: APTT 34.4 Seconds (25.6-37.1) 09/18/18 23:25 Troponin I < 0.0120 ng/mL (0.00-0.120) 09/18/18 23: Total Bilirubin 0.4 mg/dl (0.2-1.3) 09/18/18 23:25 AST 29 U/L (14-36) 09/18/18 23:25 ALT 29 U/L (9-52) 09/18/18 23:25 Alkaline Phosphatase 88 U/L (38-126) 09/18/18 23:25 Total Protein 7.7 G/DL (6.3-8.2) 09/18/18 23:25 Albumin 4.4 g/dL (3.5-5.0) 09/18/18 23:25 Globulin 3.2 gm/dL (2.2-3.9) 09/18/18 23:25 Albumin/Globulin Ratio 1.4 (1.0-2.1) 09/18/18 23:25 - ECG O2 Sat by Pulse Oximetry: 99 (RA) Pulse Ox Interpretation: Normal Medical Decision Making Medical Decision Making: Time: 2320 A/P: Nonspecific palpitations, possible related to PE vs. thyroid disorder vs. electrolyte imbalance vs. ACS --EKG --Labs --CXR 2:00 --Patient's labs all normal --Patient remains well appearing --Recommended OBS Tele admission to obtain Echo in the AM, however patient d eclining admission, states she will followup with her PMD today --Well appearing with stable vitals upon discharge Scribe Attestation: Documented by Leann Borrego, acting as a scribe for Antony Singh MD. Provider Scribe Attestation: All medical record entries made by the Scribe were at my direction and personally dictated by me. I have reviewed the chart and agree that the record accurately reflects my personal performance of the history, physical exam, medical decision making, and the department course for this patient. I have also personally directed, reviewed, and agree with the discharge instructions and disposition. Disposition - Clinical Impression Clinical Impression: Palpitations - Patient ED Disposition Is Patient to be Admitted: No Counseled Patient/Family Regarding: Studies Performed, Diagnosis, Need For Followup - Disposition Referrals: [facility] [Provider Group] Disposition: Routine/Home Disposition Time: 02:00 Condition: IMPROVED Instructions: Palpitations Forms: [employer] (Turkish)
[2018-09-19 00:49] LABS: D DIMER < 200 ng/mlDDU (0-230)
[2018-09-19 06:00] VITALS: BP 152/95; PULSE 71
--- NOTE | 2018-09-19 08:26 | RAD ---
Date of service: 09/18/2018 HISTORY: palpitations COMPARISON: Chest radiographs 03/26/2015. TECHNIQUE: Chest PA and lateral views FINDINGS: LUNGS: No active pulmonary disease. PLEURA: No significant pleural effusion identified. No pneumothorax apparent. CARDIOVASCULAR: No aortic atherosclerotic calcification present. Normal cardiac size. No pulmonary vascular congestion. OSSEOUS STRUCTURES: No significant abnormalities. VISUALIZED UPPER ABDOMEN: Normal. OTHER FINDINGS: None. IMPRESSION: No interval acute cardiopulmonary disease appreciated.
--- NOTE | 2018-09-19 13:35 | CARD ---
APPROVED REPORT Date of service: 09/18/2018 EKG Measurement Heart [id number] <Conclusion> Normal sinus rhythm Normal ECG
== END 2018-09-19 02:40 | disposition home or self-care (01) ==
LOC: H.ER 21:36
DX: R00.2 Palpitations (principal); I12.9 Hypertensive chronic kidney disease with stage 1 through stage 4 chronic kidney disease, or unspecified chronic kidney disease